=== PATIENT | male | born 1935 | race Caucasian/White ===

== ENCOUNTER 2024-10-10 07:38 | Inpatient (IN) | payer OTHER, SELFPAY ==
[2024-10-10] VITALS (23 sets, daily range): BP systolic 105–139; BP diastolic 45–78; PULSE 62–79; RESP 16–24; TEMP 36.4–37.2; O2SAT 78–99; BMI 27.0
--- NOTE | 2024-10-10 08:05 | EKG12_ITS ---
Test Reason : SOB Blood Pressure : */* mmHG Vent. Rate : 66 BPM Atrial Rate : 66 BPM P-R Int : 166 ms QRS Dur : 90 ms QT Int : 420 ms P-R-T Axes : -4 39 19 degrees QTcB Int : 440 ms Normal sinus rhythm baseline artifact probably normal Confirmed by Sharan Stokes ([id number]), editorial writer EMMIE ZARCO ([id number]) on 10/11/2024 1:03:34 PM Referred By: Confirmed By: Sharan Stokes
--- NOTE | 2024-10-10 08:06 | EDS_ITS ---
HPI History of Present Illness Chief Complaint: Cold Sx Informant: patient and family Narrative Narrative: Sent from urgent care here with son-in-law increasing productive sputum for the last 4 to 5 days. Denies dyspnea, occasional wheezing. Denies asthma or COPD history. Denies chest or abdominal pain. Denies fevers chills or myalgias. Oxygen was low at urgent care therefore he sent here. He does not wear home oxygen. On arrival pulse ox 83% on room air. Denies cardiac history. Hypertension and diabetes history. Denies sick contacts. Per son-in-law during nobody was sick around him. Prior similar symptoms: No PFSH PFSH Allergy/AdvReac Type Severity Reaction Status Date / Time No Known Allergies Allergy Verified 10/10/24 07:43 Social History Smoking Status: Smoker, status unknown tobacco type: smokeless tobacco ROS ROS ED Constitutional Constitutional ED: Denies chills, fever(s) or sweats Eyes Eyes: Denies change in vision ENT ENT ED: Denies dysphagia or sore throat Cardiovascular Cardiovascular: Denies chest pain, leg edema, palpitations or racing heartbeat Respiratory/Chest Respiratory/Chest: Reports cough and other Details: Wheeze ; Denies dyspnea or dyspnea on exertion Gastrointestinal Gastrointestinal: Denies abdominal pain, diarrhea, nausea or vomiting Genitourinary Genitourinary ED: Denies dysuria, hematuria or urinary frequency Musculoskeletal Musculoskeletal: Denies back pain, extremity pain or neck pain Integumentary Denies rash or wounds Neurologic Neurologic: Denies headache(s), paresthesias or weakness EXAM Physical Exam Const Vital Signs: 10/10/24 07:41 10/10/24 07:43 10/10/24 07:52 Temperature 97.5 F L 98.9 F Temperature Source Temporal Oral Pulse Rate 64 62 Respiratory Rate 24 H 20 H Respiratory Effort Respiratory Depth Respiratory Pattern Blood Pressure 123/49 H 135/62 H Blood Pressure Mean 73 86 Pulse Ox 83 92 86 Oxygen Delivery Method Room Air Nasal Cannula Nasal Cannula Oxygen Flow Rate (L/min) 2 2 10/10/24 07:52 10/10/24 07:52 10/10/24 08:18 Temperature Temperature Source Pulse Rate 63 Respiratory Rate 16 Respiratory Effort Short of Breath Respiratory Depth Shallow Respiratory Pattern Normal Normal Blood Pressure Blood Pressure Mean Pulse Ox Oxygen Delivery Method Nasal Cannula Oxygen Flow Rate (L/min) 2 10/10/24 08:18 10/10/24 08:26 10/10/24 08:43 Temperature 98.7 F Temperature Source Oral Pulse Rate 79 Respiratory Rate 18 Respiratory Effort Respiratory Depth Respiratory Pattern Blood Pressure 135/75 H Blood Pressure Mean 95 Pulse Ox 99 92 97 Oxygen Delivery Method Nasal Cannula Nasal Cannula Nasal Cannula Oxygen Flow Rate (L/min) 2 2 2 Positive well nourished and well developed Constitutional Narrative: 2 L nasal cannula 92% pulse ox on the monitor. General Appearance ED: well developed and NAD HEENT Reports moist mucous membranes normocephalic and atraumatic Eyes EOMs intact bilaterally and conjunctivae normal General Eye ED: Yes normal appearance of both eyes Neck no lymphadenopathy and supple General: Negative for tenderness Chest Wall Chest: Negative for tenderness Resp Resp Narrative: Diminished breath sounds at bases with bilateral expiratory wheeze. Effort and Inspection: Negative for respiratory distress Cardio regular rate, regular rhythm and no murmurs Peripheral Pulses: pulses 2+ throughout GI normal to inspection, nondistended, normoactive bowel sounds and non-tender Palpation: Negative for guarding or rebound tenderness present Back/Spine no CVA tenderness and no thoracic nor lumbar tenderness Extremity normal to inspection Extremity Narrative: Very minimal swelling lower extremities. General Extremety ED: Yes edema; Negative for tenderness General Extremity: edema Neuro oriented x3 and no sensory deficits noted Sensorium / Orientation: awake and alert Skin no rashes or lesions noted and no wounds MDM MDM MDM Narrative Medical decision making narrative: Interventions / MDM: Differential diagnosis: Hypoxia, commune acquired pneumonia, anemia, kidney injury Diagnosis considered but do not suspect: Lung mass however CT negative. My EKG interpretation: Sinus rate of 66, no ST or T wave changes, wandering baseline noted. Imaging independently reviewed and interpreted by myself: 2 view chest x-ray: Findings concerning of right upper, right middle and right lower lobe infiltrative findings. CT chest IV contrast: No mass. Infiltrative changes noted. Also read by radiology. External documents reviewed: N/A Test considered but not ordered:N/A ED course: Patient external wheeze productive sputum last 4 to 5 days with hypoxia. Stable on oxygen. Aerosol treatments ordered. Labs ordered, chest x- ray and viral swabs ordered for further evaluation. 0845: White count 7.5. Chest x-ray 2 views concerning for right upper middle and lower lobe infiltrative findings. Patient 1 out of 4 SIRS criteria for initial respiratory rate 24. No sepsis criteria. Blood pressure stable. Hemoglobin 8.1. Hemoccult obtained and sent. He states history of anemia in the past. He cannot tell me what his baseline number was. Currently on 3 L nasal cannula 95%. 0900: Per radiology read x-ray right lower lobe density with possible mass recommended CT scan for further evaluation. He has no tobacco history. Creatinine 2.08 with GFR of 32. He denies any history of CKD. He does admit to decreased p.o. intake. He will be given normal saline fluid for hydration. Wi ll obtain contrast CT chest for evaluation to rule out mass. Will discuss with hospitalist service for admission. 0950: CT chest no mass infiltrative changes noted. Hemoccult negative. I discussed this with hospitalist Dr. Pinto for admission to medical floor. Blood pressure stable. Stable on 3 L of oxygen. Re-evaluation: stable Disposition discussed with patient/family/significant other: Patient and family Case discussed with consulting clinician: Hospitalist This note was generated with [employer] dictation software. It may contain incorrect words, spelling, and punctuation that were not noted in checking the note before signing. Lab Data Attestation: I reviewed the patient's lab results. Labs: Laboratory Results - last 24 hr 10/10/24 07:58 WBC 7.5 RBC 2.33 L Hgb 8.1 L Hct 25.5 L MCV 109.4 H MCH 34.8 H MCHC 31.8 L RDW Std Deviation 68.7 H RDW Coeff of Zackery 17.3 H Plt Count 195 MPV 12.0 Immature Gran % (Auto) 0.700 Neut % (Auto) 73.7 H Lymph % (Auto) 11.1 L [place] % (Auto) 13.8 H Eos % (Auto) 0.4 Baso % (Auto) 0.3 Absolute Neuts (auto) 5.5 Absolute Lymphs (auto) 0.83 Nucleated RBC % 0 Anisocytosis 1+ Sodium 137 Potassium 3.6 Chloride 102 Carbon Dioxide 27.0 Anion Gap 8 BUN 43 H Creatinine 2.08 H Estim Creat Clear Calc 24.86 Est GFR (MDRD) Af Amer 39 L Est GFR (MDRD) Non-Af 32 L BUN/Creatinine Ratio 20.7 H Glucose 142 H Calcium 8.9 Total Bilirubin 1.30 H AST 24 ALT 32 Alkaline Phosphatase 77 Total Protein 7.0 Albumin 3.4 Globulin 3.6 Albumin/Globulin Ratio 0.9 Radiography Diagnostic Testing: Clinical Impression(s) from Imaging Studies Chest X-Ray 10/10/24 08:30 IMPRESSION: Right upper lobe infiltration with infiltration/soft tissue density in the right lower lobe. Correlation with CT scan recommended. Electronically Signed: Desean Martin MD at 8:53 EST , Chest CT 10/10/24 09:20 IMPRESSION: Right upper and right middle lobe consolidation with a small right pleural effusion. Radiographic follow-up recommended. Gallstones. Electronically Signed: Desean Martin MD at 9:48 EST , Discharge Plan Dx/Rx/DC Orders Clinical Impression: Community acquired pneumonia, Hypoxia, Anemia, Acute kidney injury Disposition Disposition: Acute Care [facility]
[2024-10-10] MEDS: Ipratropium/Albuterol Sulfate 3 ML AMPUL.NEB INHALATION (08:18)
--- NOTE | 2024-10-10 08:30 | RAD_ITS ---
STUDY: X-RAY CHEST REASON FOR EXAM: Male, 88 years old. Cough TECHNIQUE: PA and lateral views of the chest. COMPARISON: None. FINDINGS: EKG electrodes are seen. Infiltrate in the right upper lobe. Rounded soft tissue density/infiltrate in the right middle lobe. Correlation with CT scan is recommended for further follow-up to rule out possible mass lesion. There is blunting of the right costophrenic angle. Normal size heart. Normal mediastinum and nyasia. Normal visualized pulmonary arteries. There is atherosclerotic calcification of the aortic arch with tortuosity. There are diffuse degenerative changes of the visualized thoracic spine. There is degenerative osteoarthritis of the bilateral shoulders. There is no demonstrated abnormality of the visualized soft tissue structures of the upper abdomen. RAD/Chest PA and Lateral IMPRESSION: Right upper lobe infiltration with infiltration/soft tissue density in the right lower lobe. Correlation with CT scan recommended. Electronically Signed: Desean Martin MD at 8:53 EST ,
[2024-10-10 08:34] LABS: Absolute Lymphocyte Count 0.83 X10^3/uL (0.83-4.51); Absolute Neutrophil Count 5.5 X10^3/uL (2.0-7.7); Basophil# 0.02 X10^3/uL; Basophil% 0.3 % (0-1); Eosinophil# 0.03 X10^3/uL; Eosinophils% 0.4 % (0-5); Hematocrit 25.5 % (40-54); Hemoglobin 8.1 g/dL (13.0-16.5); Lymphocyte # 0.83 X10^3/ul (0.83-4.51); Lymphocyte % 11.1 % (19-41); Mean Corp Hgb Conc 31.8 g/dL (32-36); Mean Corpuscular Hgb 34.8 pg (27.0-32.0); Mean Corpuscular Volume 109.4 fL (80-94); Monocyte# 1.03 X10^3/uL; Monocyte% 13.8 % (0-10); NRBC Flagged by Analyzer 0 % (0-5); Neutrophil # 5.51 X10^3/uL (2.7-7.7); Neutrophil % 73.7 % (47-70); POSITIVE MORPHOLOGY YES; Platelet Count 195 K/mm3 (150-450); RBC Distribution Width CV 17.3 % (11.6-14.6); RBC Distribution Width SD 68.7 fl (35.1-43.9); Red Blood Count 2.33 M/mm3 (4.6-6.2); White Blood Count 7.5 K/mm3 (4.4-11.0)
[2024-10-10 08:42] LABS: Differential Indicated SCAN CRITERIA MET
[2024-10-10 08:53] LABS: ALB/GLOB Ratio 0.9 RATIO (0.9-2.4); AST(SGOT) 24 U/L (15-37); Alanine Aminotransfer ALT/SGPT 32 U/L (16-61); Albumin, Serum 3.4 g/dL (3.2-5.0); Alkaline Phosphatase 77 U/L (45-117); Anion Gap 8 (5-15); BUN 43 mg/dL (7-18); BUN/Creat Ratio 20.7 RATIO (10-20); Calcium,Total 8.9 mg/dL (8.5-10.1); Chloride 102 mmol/L (98-107); Creatinine, Serum 2.08 mg/dL (0.70-1.30); EST Glomerular Filtration Rate 32 mL/min (>60); Est Glom Filt Rate - Afr Amer 39 mL/min (>60); Estimated Creatinine Clearance 24.86 ml/min; Globulin 3.6 g/dL (2.2-4.2); Glucose 142 mg/dL (74-106); Potassium 3.6 mmol/L (3.5-5.1); Sodium Level 137 mmol/L (136-145)
--- NOTE | 2024-10-10 09:20 | CT_ITS ---
STUDY: CT CHEST WITH CONTRAST REASON FOR EXAM: Male, 88 years old. pna, ? mass -- gfr 32 RADIATION DOSAGE (If Supplied By Facility): CTDIvol = ( 14.53 ) mGy, DLP = ( 522.40 ) mGycm TECHNIQUE: Transaxial imaging was performed following intravenous administration of IV 75mL Isovue-300. Multiplanar coronal and sagittal images were reformatted. Individualized dose optimization techniques were used for this CT. COMPARISON: Comparison is made with prior chest radiograph done earlier today. FINDINGS: CHEST There is evidence of right upper and right middle lobe consolidation. Patchy infiltrate in the right lower lobe with a small right pleural effusion. Radiographic follow-up recommended. There is no demonstrated pleural abnormality. Normal heart and pericardium. Normal mediastinum. Normal hilar regions. Normal unenhanced pulmonary arteries. There is atherosclerotic calcification of the aortic arch. There are multi-level degenerative changes of the thoracic spine. Calcified splenic and hepatic granulomas. Multiple gallstones. CT/Chest WITH Contrast IMPRESSION: Right upper and right middle lobe consolidation with a small right pleural effusion. Radiographic follow-up recommended. Gallstones. Electronically Signed: Desean Martin MD at 9:48 EST ,
[2024-10-10] MEDS: 0.9% Normal Saline (500mL Bag) 500 ML 999 ML IV (09:32)
[2024-10-10] MEDS: Ceftriaxone 1 GM/50 ML BAG IV (09:33)
[2024-10-10 09:40] LABS: Anisocytosis 1+
[2024-10-10] MEDS: Azithromycin 500 MG in Dextrose 5%-Water (250mL Bag) 250 ML 250 MG IV (09:54)
[2024-10-10 10:12] LABS: BNP,B-Type NATRIURETIC PEPTIDE 372.5 pg/mL (0-100)
--- NOTE | 2024-10-10 10:27 | CASEMGMT ---
Care Management Face to Face with patient for initial transition planning/care coordination assessment.? This medical writer introduced self and role at [facility]. Patient lying in bed, alert and oriented. Patient willing to participate in assessment and is able to answer all questions appropriately, patients son in law in room and permission given for him to participate in assessment.? Care providers, pharmacy, and demographics verified. Admitting Diagnosis: pneumonia Other diagnosis history: hypoxia, anemia, kidney injury PCP: ?[facility] provider, [facility] Specialists: ?None Preferred Pharmacy: [facility] Insurance: ?Medicare and VA Prescription Benefit:? yes Living Will/HPOA: Patient states he has both, son in law to bring in copies when able LNOK: Morenita Todd, daughter Living Arrangements:? Splits time between daughters, one lives in [place], [place], one lives in [place], [place].? Currently living in [place] in a two story home.? 5-6 steps to enter, 12-15 to get upstairs.? Patient able to climb stairs as needed.?? Daughter cooks and does laundry, patient able to dress, bathe and toilet self.? Transportation: Patient does not drive, daughter or KELLY transport as needed. DME: cane, walker, wheelchair, grab bars in shower, shower chair and blood pressure cuff. Patient was not using oxygen at home. HHC:? used previously when living in [place], not since moving to [place] SNF/Rehab: None Community Resources: None Behavioral Health History:? None Patient goals: Patient wishes to discharge home.? Patient states he has no further needs or concerns at this time. Disposition Plan: CM to follow for discharge planning needs that may arise. Shalini Tijerina, BLUE SPLIT TRIMMER, ELEVATOR TENDER
[2024-10-10] MEDS: 0.9% Normal Saline (500mL Bag) 500 ML 15 ML IV (11:38)
[2024-10-10] MEDS: 0.9% Saline Lock 10 ML Syringe IV (11:38)
[2024-10-10] MEDS: Heparin Injection (Vial) 5,000 UNIT/ML VIAL 5000 UNIT SC ×2 (11:38→22:43)
[2024-10-10] MEDS: guaiFENesin Dm 10 ML UDC PO ×3 (11:38→23:14)
[2024-10-10] MEDS: Pantoprazole Sodium 40 MG in 0.9% Normal Saline (100mL MB+) 100 ML 330 MG IV ×2 (12:02→22:44)
[2024-10-10] MEDS: Albuterol 2.5 MG/3 ML VIAL.NEB. INHALATION ×2 (13:19→20:22)
[2024-10-10 14:15] LABS: Hematocrit 22.3 % (40-54); Hemoglobin 7.1 g/dL (13.0-16.5)
--- NOTE | 2024-10-10 17:38 | PCM.HP.STD ---
HPI - General General Date of Admission: 10/10/24 Date of Service: 10/10/24 Chief Complaint: Low pulse oximetry HPI Narrative PEPE RIOS, is a 88 M who presents to the emergency room [facility] after going to urgent care with complaints of cough productive of green sputum over the past several days. Patient's pulse ox on room air at the urgent care was noted to be 83% and so he was referred to [facility] ER for evaluation. Labs obtained in the emergency room showed normal white blood cell count at 7.5, pulse ox on room air was 83%, chest x-ray was obtained and showed right upper middle and lower lobe infiltrates, hemoglobin was low at 8.1, patient's oxygen saturation on 3 L nasal cannula was 95%. CT scan of the chest revealed right upper and right middle lobe consolidation and small right pleural effusion. Gallstones were also noted to be present. Patient was given IV Zithromax and Rocephin, he will be admitted to [place] [id number] for community-acquired pneumonia with hypoxia. [facility] Home Medications ?Medication ?Instructions ?Recorded ?Last Taken ?Type amlodipine 10 mg tablet 10 mg PO DAILY bp 10/10/24 Unknown History aspirin 81 mg chewable tablet 1 tab PO QHS blood thinner 10/10/24 Unknown History (Aspirin Childrens) atenolol 100 mg tablet 100 mg PO DAILY heart 10/10/24 Unknown History gabapentin 300 mg capsule 300 mg PO QHS pain 10/10/24 Unknown History glipizide 5 mg tablet 5 mg PO BID diabetes 10/10/24 Unknown History hydrochlorothiazide 25 mg tablet 25 mg PO DAILY bp 10/10/24 Unknown History losartan 100 mg tablet (Cozaar) 100 mg PO DAILY bp 10/10/24 Unknown History lovastatin 40 mg tablet,extended 40 mg PO QHS see 10/10/24 Unknown History release 24 hr (Altoprev) magnesium 250 mg tablet 500 mg PO QHS supplement 10/10/24 Unknown History omeprazole 20 mg capsule,delayed 20 mg PO DAILY gerd 10/10/24 Unknown History release paroxetine HCl 20 mg tablet 20 mg PO QHS mood 10/10/24 Unknown History pioglitazone 30 mg tablet (Actos) 30 mg PO DAILY see 10/10/24 Unknown History Allergy/AdvReac Type Severity Reaction Status Date / Time No Known Allergies Allergy Verified 10/10/24 07:43 Social History Smoking Status: Smoker, status unknown tobacco type: smokeless tobacco ROS Constitutional Constitutional: Reports fatigue; Denies anorexia, change in weight, chills, fever(s), night sweats or weakness Eyes Eyes: Denies blurry vision, change in vision, discharge from eye(s) or eye pain Cardiovascular Cardiovascular: Denies chest pain, claudication, edema or palpitations Respiratory/Chest Respiratory/Chest: Reports shortness of breath with exertion; Denies cough, hemoptysis or shortness of breath at rest Gastrointestinal Gastrointestinal: Denies abdominal pain, constipation, diarrhea, hematemesis, hematochezia, melena, nausea or vomiting Genitourinary Genitourinary: Denies difficulty urinating, dysuria, hematuria, urinary frequency, urinary hesitancy, urinary incontinence or urinary urgency Musculoskeletal Musculoskeletal: Denies back pain, joint pain, joint stiffness, joint swelling, myalgias or neck pain Neurologic Neurologic: Denies abnormal gait, abnormal speech, dizziness, focal weakness, headache(s), loss of vision, numbness, other visual disturbances, paresthesias, syncope or tingling Psychiatric Psychiatric: Denies anxiety, cognitive impairment, depression, irritability, mood swings or suicidal ideation Endocrine Endocrinology: Denies change in body appearance, cold intolerance, excessive sweating, heat intolerance, polydipsia or polyuria Hematologic/Lymphatic Hematologic/Lymphatic: Denies none, anemia, easy bleeding, easy bruising or lymphadenopathy Allergic/Immunologic Allergic/Immunologic: Denies rhinitis, urticaria, eczemia or asthma Vital Signs Vital Signs Vital Signs: 10/10/24 07:41 10/10/24 07:43 10/10/24 07:52 Temperature 97.5 F L 98.9 F Temperature Source Temporal Oral Pulse Rate 64 62 Respiratory Rate 24 H 20 H Respiratory Effort Respiratory Depth Respiratory Pattern Blood Pressure 123/49 H 135/62 H Blood Pressure Mean 73 86 Blood Pressure Source Blood Pressure Position Blood Pressure Location Pulse Ox 83 92 86 Oxygen Delivery Method Room Air Nasal Cannula Nasal Cannula Oxygen Flow Rate (L/min) 2 2 10/10/24 07:52 10/10/24 07:52 10/10/24 08:18 Temperature Temperature Source Pulse Rate 63 Respiratory Rate 16 Respiratory Effort Short of Breath Respiratory Depth Shallow Respiratory Pattern Normal Normal Blood Pressure Blood Pressure Mean Blood Pressure Source Blood Pressure Position Blood Pressure Location Pulse Ox Oxygen Delivery Method Nasal Cannula Oxygen Flow Rate (L/min) 2 10/10/24 08:18 10/10/24 08:26 10/10/24 08:43 Temperature 98.7 F Temperature Source Oral Pulse Rate 79 Respiratory Rate 18 Respiratory Effort Respiratory Depth Respiratory Pattern Blood Pressure 135/75 H Blood Pressure Mean 95 Blood Pressure Source Blood Pressure Position Blood Pressure Location Pulse Ox 99 92 97 Oxygen Delivery Method Nasal Cannula Nasal Cannula Nasal Cannula Oxygen Flow Rate (L/min) 2 2 2 10/10/24 09:55 10/10/24 10:00 10/10/24 10:54 Temperature 98.7 F 98.4 F 98.0 F Temperature Source Oral Oral Pulse Rate 66 78 73 Respiratory Rate 18 18 20 H Respiratory Effort Respiratory Depth Respiratory Pattern Blood Pressure 139/68 H 126/78 H 129/51 H Blood Pressure Mean 91 94 77 Blood Pressure Source Blood Pressure Position Blood Pressure Location Pulse Ox 94 96 93 Oxygen Delivery Method Room Air Nasal Cannula Oxygen Flow Rate (L/min) 2 10/10/24 13:10 10/10/24 13:46 10/10/24 14:35 Temperature Temperature Source Pulse Rate 78 Respiratory Rate 18 Respiratory Effort Respiratory Depth Respiratory Pattern Normal Blood Pressure Blood Pressure Mean Blood Pressure Source Blood Pressure Position Blood Pressure Location Pulse Ox 78 Oxygen Delivery Method Nasal Cannula Room Air Oxygen Flow Rate (L/min) 2 10/10/24 14:42 10/10/24 14:42 10/10/24 14:44 Temperature 98.3 F Temperature Source Oral Pulse Rate 73 Respiratory Rate 18 Respiratory Effort Normal Respiratory Depth Respiratory Pattern Blood Pressure 105/45 L Blood Pressure Mean 65 Blood Pressure Source Monitor Blood Pressure Position Semi-Fowlers Blood Pressure Location Right Arm Pulse Ox 92 91 Oxygen Delivery Method Nasal Cannula Nasal Cannula Oxygen Flow Rate (L/min) 3 2 10/10/24 15:10 10/10/24 15:25 10/10/24 15:48 Temperature Temperature Source Pulse Rate Respiratory Rate Respiratory Effort Respiratory Depth Respiratory Pattern Blood Pressure Blood Pressure Mean Blood Pressure Source Blood Pressure Position Blood Pressure Location Pulse Ox 85 91 92 Oxygen Delivery Method Nasal Cannula Nasal Cannula Oxygen Flow Rate (L/min) 3 3 3 10/10/24 15:51 10/10/24 16:10 Temperature Temperature Source Pulse Rate 62 Respiratory Rate Respiratory Effort Respiratory Depth Respiratory Pattern Blood Pressure Blood Pressure Mean Blood Pressure Source Blood Pressure Position Sitting Blood Pressure Location Pulse Ox 86 95 Oxygen Delivery Method Nasal Cannula Oxygen Flow Rate (L/min) 3 3 Weight Weight: 85.502 kg Body Mass Index (BMI) 27.0 Physical Exam Const alert, oriented x3, no apparent distress and healthy appearing General Appearance: cooperative, well kempt and well developed Orientation / Consciousness: awake, oriented to person, oriented to place and oriented to time HEENT normocephalic, head/scalp atraumatic and moist oral mucous membranes Eyes PERRL, EOMs intact bilaterally and conjunctivae normal Neck supple, no JVD, thyroid normal and no carotid bruits General: trachea midline Resp normal respiratory effort, no retractions and no use of accessory muscles Resp Narrative: Inspiratory rales are noted over the right lung field Auscultation: Negative for rales, rhonchi or wheezes Cardio regular rate, regular rhythm, S1 normal heart sound, S2 normal heart sound, no murmurs, no rub and no gallops Cardio Narrative: Occasional extrasystolic beats were noted GI normal to inspection, nondistended, normoactive bowel sounds, soft to palpation, non-tender and non-distended Extremity no clubbing, cyanosis or edema Skin no rashes or lesions noted General Skin Exam: no breakdown Neuro oriented x3, CN's II-XII intact bilaterally, moves all extremities, no focal motor deficits and no sensory deficits noted Sensorium / Orientation: awake and alert Speech: speech normal Psych affect normal Results Lab / Micro Data 10/11/24 05:06 10/11/24 05:06 Labs: Laboratory Results - last 24 hr 10/10/24 07:58: WBC 7.5, RBC 2.33 L, Hgb 8.1 L, Hct 25.5 L, MCV 109.4 H, MCH 34.8 H, MCHC 31.8 L, RDW Std Deviation 68.7 H, RDW Coeff of Zackery 17.3 H, Plt Count 195, MPV 12.0, Immature Gran % (Auto) 0.700, Neut % (Auto) 73.7 H, Lymph % (Auto) 11.1 L, [place] % (Auto) 13.8 H, Eos % (Auto) 0.4, Baso % (Auto) 0.3, Absolute Neuts (auto) 5.5, Absolute Lymphs (auto) 0.83, Nucleated RBC % 0, Anisocytosis 1+, Sodium 137, Potassium 3.6, Chloride 102, Carbon Dioxide 27.0, Anion Gap 8, BUN 43 H, Creatinine 2.08 H, Estim Creat Clear Calc 24.86, Est GFR (MDRD) Af Amer 39 L, Est GFR (MDRD) Non-Af 32 L, BUN/Creatinine Ratio 20.7 H, Glucose 142 H, Calcium 8.9, Total Bilirubin 1.30 H, AST 24, ALT 32, Alkaline Phosphatase 77, B-Natriuretic Peptide 372.5 H, Total Protein 7.0, Albumin 3.4, Globulin 3.6, Albumin/Globulin Ratio 0.9 10/10/24 14:08: Hgb 7.1 L, Hct 22.3 L Micro: Microbiology 10/10/24 15:00 Stool Stool Occult Blood (DOV) - Final 10/10/24 15:00 Urine, Clean Catch Legionella Antigen - Final 10/10/24 15:00 Urine, Clean Catch Streptococcus pneumoniae Antigen (M - Final 10/10/24 08:05 Mucosa - Nose SARS-CoV-2, Influenza & RSV (PCR) - Final 10/10/24 08:59 Stool Stool Occult Blood (DOV) - Final Imaging Radiology Impression Chest X-Ray 10/10/24 08:30 IMPRESSION: Right upper lobe infiltration with infiltration/soft tissue density in the right lower lobe. Correlation with CT scan recommended. Electronically Signed: Desean Martin MD at 8:53 EST , Chest CT 10/10/24 09:20 IMPRESSION: Right upper and right middle lobe consolidation with a small right pleural effusion. Radiographic follow-up recommended. Gallstones. Electronically Signed: Desean Martin MD at 9:48 EST , Assessment & Plan Assessment/Plan (1) Community acquired pneumonia: PLAN: Plan 1. Right sided community-acquired pneumonia-patient will be admitted to MedSurg, Zithromax and Rocephin will be administered, aerosol treatments will be administered, labs will be monitored as needed #2 hypoxia secondary #1-pulse ox will be monitored, oxygen will be adjusted as needed #3 anemia-etiology unclear, labs will be trended, patient may need workup for anemia #4 elevated creatinine-unfortunately we do not have a baseline creatinine on the patient, monitor labs Total clinical time spent by myself addressing patient's medical issues, reviewing all of his data, and collaborating with patient's care team: 55 minutes Charges/Coding Visit Charges Inpatient E&M: 18607 Init Hosp L2
[2024-10-10 18:11] LABS: Hematocrit 22.3 % (40-54); Hemoglobin 7.1 g/dL (13.0-16.5)
[2024-10-10] MEDS: Gabapentin 300 MG Capsule PO (22:43)
[2024-10-10] MEDS: Atorvastatin Calcium 20 MG Tablet PO (22:44)
[2024-10-11] VITALS (15 sets, daily range): BP systolic 111–136; BP diastolic 50–66; PULSE 58–88; RESP 14–28; TEMP 36.6–37.4; O2SAT 84–98
[2024-10-11 06:06] LABS: Absolute Lymphocyte Count 0.78 X10^3/uL (0.83-4.51); Absolute Neutrophil Count 2.7 X10^3/uL (2.0-7.7); Basophil# 0.02 X10^3/uL; Basophil% 0.5 % (0-1); Eosinophil# 0.03 X10^3/uL; Eosinophils% 0.7 % (0-5); Hematocrit 21.6 % (40-54); Hemoglobin 6.8 g/dL (13.0-16.5); Lymphocyte # 0.78 X10^3/ul (0.83-4.51); Lymphocyte % 17.7 % (19-41); Mean Corp Hgb Conc 31.5 g/dL (32-36); Mean Corpuscular Hgb 34.9 pg (27.0-32.0); Mean Corpuscular Volume 110.8 fL (80-94); Mean Platelet Vol. 11.8 fl (6.2-12.0); Monocyte# 0.81 X10^3/uL; Monocyte% 18.4 % (0-10); NRBC Flagged by Analyzer 0.5 % (0-5); Neutrophil # 2.73 X10^3/uL (2.7-7.7); Neutrophil % 61.8 % (47-70); POSITIVE MORPHOLOGY YES; Platelet Count 166 K/mm3 (150-450); RBC Distribution Width CV 17.3 % (11.6-14.6); Red Blood Count 1.95 M/mm3 (4.6-6.2); White Blood Count 4.4 K/mm3 (4.4-11.0)
[2024-10-11 06:15] LABS: Differential Indicated SCAN CRITERIA MET
[2024-10-11] MEDS: glipiZIDE 5 MG Tablet PO ×2 (06:29→16:14)
[2024-10-11 06:45] LABS: Anion Gap 7 (5-15); BUN 39 mg/dL (7-18); BUN/Creat Ratio 20.5 RATIO (10-20); Calcium,Total 8.5 mg/dL (8.5-10.1); Chloride 104 mmol/L (98-107); EST Glomerular Filtration Rate 36 mL/min (>60); Est Glom Filt Rate - Afr Amer 43 mL/min (>60); Estimated Creatinine Clearance 27.21 ml/min; Glucose 157 mg/dL (74-106); Potassium 3.8 mmol/L (3.5-5.1); Sodium Level 138 mmol/L (136-145)
[2024-10-11] MEDS: Albuterol 2.5 MG/3 ML VIAL.NEB. INHALATION ×3 (07:05→19:22)
[2024-10-11 07:53] LABS: Anisocytosis 1+; Ovalocyte RARE
[2024-10-11] MEDS: hydroCHLOROthiazide 25 MG Tablet PO (08:58)
[2024-10-11] MEDS: amLODIPine 10 MG Tablet PO (08:58)
[2024-10-11] MEDS: guaiFENesin Dm 10 ML UDC PO ×3 (08:58→22:22)
[2024-10-11] MEDS: Paroxetine 20 MG Tablet PO (08:59)
[2024-10-11] MEDS: Pantoprazole Sodium 40 MG Tablet PO (08:59)
[2024-10-11] MEDS: Atenolol 100 MG Tablet PO (09:00)
[2024-10-11] MEDS: Losartan Potassium 100 MG Tablet PO (09:00)
[2024-10-11] MEDS: 0.9% Saline Lock 10 ML Syringe IV (09:03)
[2024-10-11] MEDS: Ceftriaxone 1 GM/50 ML BAG IV (09:03)
[2024-10-11] MEDS: Azithromycin 500 MG in Dextrose 5%-Water (250mL Bag) 250 ML 250 MG IV (10:00)
[2024-10-11 12:09] LABS: Ferritin 657 ng/mL (26-388); Iron 30 ug/dL (65-175); Iron Binding Capacity,Total 225 ug/dL (250-450); PERCENT IRON SATURATION 13.3 % (15.0-55.0)
--- NOTE | 2024-10-11 14:16 | NURSING ---
rate bumped to 140 d/t bag volume states 500cc
--- NOTE | 2024-10-11 15:52 | CASEMGMT ---
Addendum entered by Meenu Multani 10/11/24 16:06: Received confirmation that [facility] does not have service in both pt locations for pt. Addendum entered by Meenu Multani 10/11/24 15:59: TC to [facility], spoke with Adri, she states they do have a location that is 14 miles from the [facility] in [place]. Email to [facility] liaison to confirm if they do as well. Original Note: FELISA COLIN into pt room, pt sitting up in chair on oxygen in no distress. Pt granddtr visiting. Pt agreeable to discussion with granddtr present. Discussed with pt where he will be dc'ing to, pt states [place] until after Jasmin. Pt does not have a pox but is able to afford one. He is aware that this may be beneficial to him. Discussed HHC with pt. Pt states physically he thinks he is getting around ok and currently does not need therapy. Discussed having SN in the home for respiratory monitoring, education. Pt is agreeable to this. Pt is aware that this FELISA COLIN will look up [employer] companies who service pt in both living situations and present those options to him. FELISA COLIN provided pt a list of HHC providers including quality and resource use data and consistent with the patient?s preferred geographic region, medical needs, and insurance network were provided from the [employer] Guide. Pt to review list and is aware that FELISA COLIN will check back in the morning for his top 3 preferences.
--- NOTE | 2024-10-11 16:27 | NURSING ---
blood done, switched over to flush tubing
--- NOTE | 2024-10-11 17:14 | PCM.PN.HOSP ---
Reason for Visit Reason for Visit: Diagnoses Pneumonia, unspecified organism (10/10/24) Subjective Subjective Patient was seen and examined today, he had a drop in his hemoglobin today and I had to transfuse 1 unit of packed red blood cells. Patient's stool Hemoccult was negative x 2. Patient is currently on 3 L of oxygen via nasal cannula. Objective Data Objective Data Vital Signs: Vital Signs Temp Pulse Resp BP Pulse Ox O2 Del Method O2 Flow Rate 97.9 F 60 20 H 136/66 H 93 Nasal Cannula 3 10/11/24 16:49 10/11/24 16:49 10/11/24 16:49 10/11/24 16:49 10/11/24 16:49 10/11/24 16:49 10/11/24 16:49 Oxygen Flow Rate (L/min) 3 Oxygen Delivery Method Nasal Cannula Weight: 85.502 kg Body Mass Index (BMI) 27.0 Intake & Output: Intake and Output for Last 24 Hours 10/09/24 10/10/24 10/11/24 23:59 23:59 23:59 Intake Total 1366.75 / 1366.75 1143.08 / 1143.08 Balance 1366.75 / 1366.75 1143.08 / 1143.08 Lab / Micro Data 10/11/24 05:06 10/11/24 05:06 Labs: Laboratory Results - last 24 hr 10/10/24 17:59: Hgb 7.1 L, Hct 22.3 L 10/11/24 05:06: WBC 4.4, RBC 1.95 L, Hgb 6.8 L, Hct 21.6 L, MCV 110.8 H, MCH 34.9 H, MCHC 31.5 L, RDW Std Deviation 69.0 H, RDW Coeff of Zackery 17.3 H, Plt Count 166, MPV 11.8, Immature Gran % (Auto) 0.900, Neut % (Auto) 61.8, Lymph % (Auto) 17.7 L, [place] % (Auto) 18.4 H, Eos % (Auto) 0.7, Baso % (Auto) 0.5, Absolute Neuts (auto) 2.7, Absolute Lymphs (auto) 0.78 L, Nucleated RBC % 0.5, Anisocytosis 1+, Ovalocytes RARE, Sodium 138, Potassium 3.8, Chloride 104, Carbon Dioxide 27.0, Anion Gap 7, BUN 39 H, Creatinine 1.90 H, Estim Creat Clear Calc 27.21, Est GFR (MDRD) Af Amer 43 L, Est GFR (MDRD) Non-Af 36 L, BUN/Creatinine Ratio 20.5 H, Glucose 157 H, Calcium 8.5 10/11/24 11:30: Iron 30 L, TIBC 225 L, Iron Saturation 13.3 L, Ferritin 657 H, Blood Type O POSITIVE, Antibody Screen NEGATIVE, Crossmatch See Detail Micro: Microbiology 10/11/24 09:00 Sputum, Expectorated/Coughed Gram Stain - Final 10/10/24 15:00 Stool Stool Occult Blood (DOV) - Final 10/10/24 15:00 Urine, Clean Catch Legionella Antigen - Final 10/10/24 15:00 Urine, Clean Catch Streptococcus pneumoniae Antigen (M - Final 10/10/24 08:05 Mucosa - Nose SARS-CoV-2, Influenza & RSV (PCR) - Final 10/10/24 08:59 Stool Stool Occult Blood (DOV) - Final Physical Exam Narrative alert, oriented x3, no apparent distress and healthy appearing General Appearance: cooperative, well kempt and well developed Orientation / Consciousness: awake, oriented to person, oriented to place and oriented to time HEENT normocephalic, head/scalp atraumatic and moist oral mucous membranes Eyes PERRL, EOMs intact bilaterally and conjunctivae normal Neck supple, no JVD, thyroid normal and no carotid bruits General: trachea midline Resp normal respiratory effort, no retractions and no use of accessory muscles Resp Narrative: Inspiratory rales are noted over the right lung field Auscultation: Inspiratory rales are noted over the right lung field Cardio regular rate, regular rhythm, S1 normal heart sound, S2 normal heart sound, no murmurs, no rub and no gallops Cardio Narrative: Occasional extrasystolic beats were noted GI normal to inspection, nondistended, normoactive bowel sounds, soft to palpation, non-tender and non-distended Extremity no clubbing, cyanosis or edema Skin no rashes or lesions noted General Skin Exam: no breakdown Neuro oriented x3, CN's II-XII intact bilaterally, moves all extremities, no focal motor deficits and no sensory deficits noted Sensorium / Orientation: awake and alert Speech: speech normal Psych affect normal Assessment & Plan Assessment/Plan (1) Anemia: (2) Community acquired pneumonia: PLAN: Plan 1. Right sided community-acquired pneumonia-continue on Zithromax and Rocephin for now #2 hypoxia secondary #1-pulse ox will be monitored, oxygen will be adjusted as needed #3 anemia-etiology unclear, labs will be trended, patient may need workup for anemia, 1 unit of packed red blood cells was transfused, H&H will be rechecked #4 elevated creatinine-unfortunately we do not have a baseline creatinine on the patient, monitor labs, creatinine today was 1.9 Total clinical time spent by myself addressing patient's medical issues, reviewing all of his data, and collaborating with patient's care team: 35 minutes Charges/Coding Visit Charges Inpatient E&M: 52123 Subs Hosp L2
[2024-10-11 17:56] LABS: Hemoglobin 8.7 g/dL (13.0-16.5)
[2024-10-11] MEDS: Atorvastatin Calcium 20 MG Tablet PO (22:22)
[2024-10-11] MEDS: Gabapentin 300 MG Capsule PO (22:22)
[2024-10-12] VITALS (10 sets, daily range): BP systolic 109–136; BP diastolic 58–61; PULSE 58–77; RESP 16–20; TEMP 36.2–37.2; O2SAT 85–98
[2024-10-12] MEDS: guaiFENesin Dm 10 ML UDC PO (06:27)
[2024-10-12] MEDS: glipiZIDE 5 MG Tablet PO ×2 (06:27→16:42)
[2024-10-12] MEDS: Albuterol 2.5 MG/3 ML VIAL.NEB. INHALATION ×3 (07:18→19:20)
[2024-10-12] MEDS: Pantoprazole Sodium 40 MG Tablet PO (08:58)
[2024-10-12] MEDS: hydroCHLOROthiazide 25 MG Tablet PO (08:58)
[2024-10-12] MEDS: Paroxetine 20 MG Tablet PO (08:58)
[2024-10-12] MEDS: Losartan Potassium 100 MG Tablet PO (08:58)
[2024-10-12] MEDS: Atenolol 100 MG Tablet PO (08:58)
[2024-10-12] MEDS: amLODIPine 10 MG Tablet PO (08:58)
[2024-10-12] MEDS: Ceftriaxone 1 GM/50 ML BAG IV (09:34)
[2024-10-12] MEDS: Azithromycin 500 MG in Dextrose 5%-Water (250mL Bag) 250 ML 250 MG IV (10:20)
--- NOTE | 2024-10-12 10:30 | CASEMGMT ---
Addendum entered by Meenu Multani 10/12/24 15:50: Confirmed with pt and dtr that Daria is the following primary care provider for pt at the [facility]. Notified HH of this. Addendum entered by Meenu Multani 10/12/24 14:55: [facility] notified FELISA COLIN that pt is accepted and will start Tuesday. RN DIXIE into pt room, pt dtr present. Pt is aware that [facility] has accepted pt for care. He is aware that should he be dc'd on Tuesday, HH will start on Tuesday. Pt just worked with therapy and pt is still declining home therapy. Pt is aware that this can be added later if need be. Discussed with pt that [employer] does not deliver on the weekend and the other most local option of [employer] does not have a branch in [place]. Pt and dtr decline to look at other options for oxygen and will use [employer]. Pt dtr to obtain pox for pt. Pt and dtr deny further needs at this time. Addendum entered by Meenu Multani 10/12/24 13:15: Received pt choices electronically via careport: 1. [facility] 2. [facility] 3. [facility]. TC to Mary at [facility], gave information that pt stays with both dtrs, how long he will be in [place] and that if pt does not dc today and needs oxygen, he will not dc until Tuesday as [employer] does not deliver oxygen on the weekend. FELISA COLIN to await decision to accept. Original Note: FELISA COLIN into pt room, pt lying in bed on oxygen. Asked pt if he has his 3 HH preferences, pt states he will wait until his dtr is present to make this choice. FELISA COLIN to check back today when dtr present.
--- NOTE | 2024-10-12 18:32 | PCM.PN.HOSP ---
Reason for Visit Reason for Visit: Diagnoses Anemia, unspecified (10/10/24) Pneumonia, unspecified organism (10/10/24) Subjective Subjective Patient was seen and examined today, he is still on 3 L of oxygen. Patient's sputum culture grew out normal respiratory sudheer. Patient's CBC will be repeated tomorrow Objective Data Objective Data Vital Signs: Vital Signs Temp Pulse Resp BP Pulse Ox O2 Del Method O2 Flow Rate 98 F 61 18 109/58 L 95 Nasal Cannula 3 10/12/24 14:24 10/12/24 14:24 10/12/24 14:24 10/12/24 14:24 10/12/24 15:27 10/12/24 14:25 10/12/24 15:27 Oxygen Flow Rate (L/min) 3 Oxygen Delivery Method Nasal Cannula Weight: 85.502 kg Body Mass Index (BMI) 27.0 Intake & Output: Intake and Output for Last 24 Hours 10/10/24 10/11/24 10/12/24 23:59 23:59 23:59 Intake Total 1366.75 / 1366.75 1143.08 / 1143.08 1095 / 1095 Balance 1366.75 / 1366.75 1143.08 / 1143.08 1095 / 1095 Lab / Micro Data 10/13/24 03:58 10/13/24 03:58 Micro: Microbiology 10/11/24 09:00 Sputum, Expectorated/Coughed Gram Stain - Final 10/11/24 09:00 Sputum, Expectorated/Coughed Respiratory Culture - Preliminary Appears to be normal respiratory sudheer. Further studies to follow. 10/10/24 15:00 Stool Stool Occult Blood (DOV) - Final 10/10/24 15:00 Urine, Clean Catch Legionella Antigen - Final 10/10/24 15:00 Urine, Clean Catch Streptococcus pneumoniae Antigen (M - Final 10/10/24 08:05 Mucosa - Nose SARS-CoV-2, Influenza & RSV (PCR) - Final 10/10/24 08:59 Stool Stool Occult Blood (DOV) - Final Physical Exam Narrative alert, oriented x3, no apparent distress and healthy appearing General Appearance: cooperative, well kempt and well developed Orientation / Consciousness: awake, oriented to person, oriented to place and oriented to time HEENT normocephalic, head/scalp atraumatic and moist oral mucous membranes Eyes PERRL, EOMs intact bilaterally and conjunctivae normal Neck supple, no JVD, thyroid normal and no carotid bruits General: trachea midline Resp normal respiratory effort, no retractions and no use of accessory muscles Resp Narrative: Inspiratory rales are noted over the right lung field Auscultation: Inspiratory rales are noted over the right lung field, breath sounds are distant bilaterally Cardio regular rate, regular rhythm, S1 normal heart sound, S2 normal heart sound, no murmurs, no rub and no gallops Cardio Narrative: Occasional extrasystolic beats were noted GI normal to inspection, nondistended, normoactive bowel sounds, soft to palpation, non-tender and non-distended Extremity no clubbing, cyanosis or edema Skin no rashes or lesions noted General Skin Exam: no breakdown Neuro oriented x3, CN's II-XII intact bilaterally, moves all extremities, no focal motor deficits and no sensory deficits noted Sensorium / Orientation: awake and alert Speech: speech normal Psych affect normal Assessment & Plan Assessment/Plan (1) Community acquired pneumonia: (2) Anemia: PLAN: Plan 1. Right sided community-acquired pneumonia-continue on Zithromax and Rocephin for now #2 hypoxia secondary #1-pulse ox will be monitored, oxygen will be adjusted as needed #3 anemia-etiology unclear, labs will be trended, patient may need workup for anemia, 1 unit of packed red blood cells was transfused, H&H will be rechecked #4 elevated creatinine-unfortunately we do not have a baseline creatinine on the patient, monitor labs Total clinical time spent by myself addressing patient's medical issues, reviewing all of his data, and collaborating with patient's care team: 35 minutes Charges/Coding Visit Charges Inpatient E&M: 45294 Subs Hosp L2
[2024-10-12] MEDS: Gabapentin 300 MG Capsule PO (22:52)
[2024-10-12] MEDS: Atorvastatin Calcium 20 MG Tablet PO (22:53)
[2024-10-13] VITALS (8 sets, daily range): BP systolic 116–146; BP diastolic 58–72; PULSE 62–78; RESP 14–24; TEMP 36.5–37.1; O2SAT 93–99
[2024-10-13 04:29] LABS: Absolute Lymphocyte Count 0.82 X10^3/uL (0.83-4.51); Absolute Neutrophil Count 3.2 X10^3/uL (2.0-7.7); Basophil# 0.01 X10^3/uL; Basophil% 0.2 % (0-1); Eosinophil# 0.04 X10^3/uL; Eosinophils% 0.8 % (0-5); Hematocrit 24.6 % (40-54); Hemoglobin 7.7 g/dL (13.0-16.5); Lymphocyte # 0.82 X10^3/ul (0.83-4.51); Mean Corp Hgb Conc 31.3 g/dL (32-36); Mean Corpuscular Hgb 33.6 pg (27.0-32.0); Mean Corpuscular Volume 107.4 fL (80-94); Mean Platelet Vol. 11.9 fl (6.2-12.0); Monocyte# 0.99 X10^3/uL; Monocyte% 19.3 % (0-10); NRBC Flagged by Analyzer 0 % (0-5); Neutrophil # 3.22 X10^3/uL (2.7-7.7); Neutrophil % 62.7 % (47-70); POSITIVE MORPHOLOGY YES; Platelet Count 176 K/mm3 (150-450); RBC Distribution Width CV 18.6 % (11.6-14.6); RBC Distribution Width SD 73.6 fl (35.1-43.9); Red Blood Count 2.29 M/mm3 (4.6-6.2); White Blood Count 5.1 K/mm3 (4.4-11.0)
[2024-10-13 04:45] LABS: Anion Gap 3 (5-15); BUN 32 mg/dL (7-18); BUN/Creat Ratio 19.9 RATIO (10-20); Calcium,Total 8.3 mg/dL (8.5-10.1); Chloride 103 mmol/L (98-107); Creatinine, Serum 1.61 mg/dL (0.70-1.30); EST Glomerular Filtration Rate 43 mL/min (>60); Est Glom Filt Rate - Afr Amer 52 mL/min (>60); Estimated Creatinine Clearance 32.12 ml/min; Glucose 51 mg/dL (74-106); Potassium 4.2 mmol/L (3.5-5.1); Sodium Level 137 mmol/L (136-145)
[2024-10-13 05:26] LABS: Anisocytosis RARE; Differential Indicated SCAN CRITERIA MET
--- NOTE | 2024-10-13 06:20 | RAD_ITS ---
STUDY: X-RAY CHEST REASON FOR EXAM: Male, 88 years old. Fever and cough TECHNIQUE: PA and lateral views of the chest. COMPARISON: 10/10/2024 FINDINGS: Lungs are expanded, left lung remains clear, there has been partial, but not yet complete resolution of airspace opacifications in the right middle and lower lung astorga. Continued follow-up recommended to assure complete resolution. Stable small right pleural effusion Normal size heart. Normal mediastinum and nyasia. Normal visualized pulmonary arteries. Normal visualized aortic arch and descending thoracic aorta. Normal visualized thoracic spine. Normal visualized ribs, clavicles, and shoulders. There is no demonstrated abnormality of the visualized soft tissue structures of the upper abdomen. RAD/Chest PA and Lateral IMPRESSION: Partial, but not yet complete resolution of previously noted infiltrates in the right middle and lower lung field. Continued follow-up recommended to assure complete resolution Stable small right pleural effusion Electronically Signed: Canelo Solo MD at 8:31 EST ,
[2024-10-13] MEDS: glipiZIDE 5 MG Tablet PO ×2 (07:29→19:25)
[2024-10-13] MEDS: Albuterol 2.5 MG/3 ML VIAL.NEB. INHALATION ×3 (07:46→19:55)
[2024-10-13 07:52] LABS: Bedside Glucose 89 mg/dL (74-106)
[2024-10-13 07:52] LABS: Bedside Glucose 60 mg/dL (74-106)
[2024-10-13] MEDS: amLODIPine 10 MG Tablet PO (07:59)
[2024-10-13] MEDS: hydroCHLOROthiazide 25 MG Tablet PO (07:59)
[2024-10-13] MEDS: Losartan Potassium 100 MG Tablet PO (07:59)
[2024-10-13] MEDS: Paroxetine 20 MG Tablet PO (08:00)
[2024-10-13] MEDS: Atenolol 100 MG Tablet PO (08:00)
[2024-10-13] MEDS: Pantoprazole Sodium 40 MG Tablet PO (08:00)
[2024-10-13] MEDS: Ceftriaxone 1 GM/50 ML BAG IV (11:33)
--- NOTE | 2024-10-13 12:14 | CASEMGMT ---
Hospitalist would like pt to DC tomorrow, FELISA COLIN notified pt not able to DC on Tuesday if he has O2 needs. Hospitalist asked FELISA COLIN to call daughter and inform her of this, FELISA COLIN called and spoke with Morenita to let her know pt will be here through the weekend.
[2024-10-13] MEDS: Azithromycin 500 MG in Dextrose 5%-Water (250mL Bag) 250 ML 250 MG IV (12:56)
--- NOTE | 2024-10-13 13:03 | PN.HOSP_ITS ---
Reason for Visit Reason for Visit: Diagnoses Anemia, unspecified (10/10/24) Pneumonia, unspecified organism (10/10/24) Subjective Subjective Patient was seen and examined today, I talked with his daughter who is in the room at the time my examination. I also talked with his case management and social service agency director today, I found out that the patient would not be able to have oxygen set up on the weekend due to the oxygen company he would have to use. Patient's hemoglobin dropped to 7.7 today, I will recheck it tomorrow, I discussed briefly about getting a colonoscopy and an EGD performed on the patient but the daughter states the patient is not sure he wants it done at this time I told her [facility] wanted to go that route. Objective Data Objective Data Vital Signs: Vital Signs Temp Pulse Resp BP Pulse Ox O2 Del Method O2 Flow Rate 98.0 F 66 16 124/58 H 97 Nasal Cannula 2 10/13/24 07:35 10/13/24 07:39 10/13/24 07:39 10/13/24 07:35 10/13/24 07:39 10/13/24 07:50 10/13/24 07:50 Oxygen Flow Rate (L/min) 2 Oxygen Delivery Method Nasal Cannula Weight: 85.502 kg Body Mass Index (BMI) 27.0 Intake & Output: Intake and Output for Last 24 Hours 10/11/24 10/12/24 10/13/24 23:59 23:59 23:59 Intake Total 1143.08 / 1143.08 1345 / 1345 300 / 300 Balance 1143.08 / 1143.08 1345 / 1345 300 / 300 Lab / Micro Data 10/13/24 03:58 10/13/24 03:58 Labs: Laboratory Results - last 24 hr 10/13/24 03:58: WBC 5.1, RBC 2.29 L, Hgb 7.7 L, Hct 24.6 L, MCV 107.4 H, MCH 33.6 H, MCHC 31.3 L, RDW Std Deviation 73.6 H, RDW Coeff of Zackery 18.6 H, Plt Count 176, MPV 11.9, Immature Gran % (Auto) 1.000 H, Neut % (Auto) 62.7, Lymph % (Auto) 16.0 L, [place] % (Auto) 19.3 H, Eos % (Auto) 0.8, Baso % (Auto) 0.2, Absolute Neuts (auto) 3.2, Absolute Lymphs (auto) 0.82 L, Nucleated RBC % 0, Anisocytosis RARE, Sodium 137, Potassium 4.2, Chloride 103, Carbon Dioxide 30.0, Anion Gap 3 L, BUN 32 H, Creatinine 1.61 H, Estim Creat Clear Calc 32.12, Est GFR (MDRD) Af Amer 52 L, Est GFR (MDRD) Non-Af 43 L, BUN/Creatinine Ratio 19.9, Glucose 51 L, Calcium 8.3 L 10/13/24 06:55: POC Glucose 60 L 10/13/24 07:28: POC Glucose 89 Micro: Microbiology 10/11/24 09:00 Sputum, Expectorated/Coughed Gram Stain - Final 10/11/24 09:00 Sputum, Expectorated/Coughed Respiratory Culture - Final Presumptive C albicans 10/10/24 15:00 Stool Stool Occult Blood (DOV) - Final 10/10/24 15:00 Urine, Clean Catch Legionella Antigen - Final 10/10/24 15:00 Urine, Clean Catch Streptococcus pneumoniae Antigen (M - Final 10/10/24 08:05 Mucosa - Nose SARS-CoV-2, Influenza & RSV (PCR) - Final 10/10/24 08:59 Stool Stool Occult Blood (DOV) - Final Radiography Diagnostic Testing: Radiology Impression Chest X-Ray 10/13/24 06:20 IMPRESSION: Partial, but not yet complete resolution of previously noted infiltrates in the right middle and lower lung field. Continued follow-up recommended to assure complete resolution Stable small right pleural effusion Electronically Signed: Canelo Solo MD at 8:31 EST , Physical Exam Narrative alert, oriented x3, no apparent distress and healthy appearing General Appearance: cooperative, well kempt and well developed Orientation / Consciousness: awake, oriented to person, oriented to place and oriented to time HEENT normocephalic, head/scalp atraumatic and moist oral mucous membranes Eyes PERRL, EOMs intact bilaterally and conjunctivae normal Neck supple, no JVD, thyroid normal and no carotid bruits General: trachea midline Resp normal respiratory effort, no retractions and no use of accessory muscles Resp Narrative: Inspiratory rales are noted over the right lung field Auscultation: Inspiratory rales are noted over the right lung field, breath sounds are distant bilaterally Cardio regular rate, regular rhythm, S1 normal heart sound, S2 normal heart sound, no murmurs, no rub and no gallops Cardio Narrative: Occasional extrasystolic beats were noted GI normal to inspection, nondistended, normoactive bowel sounds, soft to palpation, non-tender and non-distended Extremity no clubbing, cyanosis or edema Skin no rashes or lesions noted General Skin Exam: no breakdown Neuro oriented x3, CN's II-XII intact bilaterally, moves all extremities, no focal motor deficits and no sensory deficits noted Sensorium / Orientation: awake and alert Speech: speech normal Psych affect normal Assessment & Plan Assessment/Plan (1) Community acquired pneumonia: (2) Anemia: PLAN: Plan 1. Right sided community-acquired pneumonia-continue on Zithromax and Rocephin for now #2 hypoxia secondary #1-pulse ox will be monitored, oxygen will be adjusted as needed #3 anemia-etiology unclear, labs will be trended, patient may need workup for anemia, patient is unsure that he wants to undergo endoscopy while in the hospital, I will recheck his CBC tomorrow #4 elevated creatinine-unfortunately we do not have a baseline creatinine on the patient, monitor labs Total clinical time spent by myself addressing patient's medical issues, reviewing all of his data, and collaborating with patient's care team: 35 minutes Charges/Coding Visit Charges Inpatient E&M: 85790 Subs Hosp L2
[2024-10-13 13:33] LABS: Vitamin B12 903 pg/mL (211-911)
[2024-10-13] MEDS: Gabapentin 300 MG Capsule PO (22:57)
[2024-10-13] MEDS: Atorvastatin Calcium 20 MG Tablet PO (22:57)
[2024-10-14] VITALS (11 sets, daily range): BP systolic 110–133; BP diastolic 50–84; PULSE 57–87; RESP 14–18; TEMP 36.6–37.5; O2SAT 94–99
[2024-10-14 05:34] LABS: Absolute Lymphocyte Count 0.64 X10^3/uL (0.83-4.51); Absolute Neutrophil Count 4.5 X10^3/uL (2.0-7.7); Basophil# 0.01 X10^3/uL; Basophil% 0.2 % (0-1); Eosinophil# 0.01 X10^3/uL; Eosinophils% 0.2 % (0-5); Hematocrit 24.9 % (40-54); Hemoglobin 7.6 g/dL (13.0-16.5); Lymphocyte # 0.64 X10^3/ul (0.83-4.51); Lymphocyte % 10.4 % (19-41); Mean Corp Hgb Conc 30.5 g/dL (32-36); Mean Corpuscular Hgb 32.9 pg (27.0-32.0); Mean Corpuscular Volume 107.8 fL (80-94); Mean Platelet Vol. 11.9 fl (6.2-12.0); Monocyte# 0.97 X10^3/uL; Monocyte% 15.7 % (0-10); NRBC Flagged by Analyzer 0 % (0-5); Neutrophil % 72.7 % (47-70); POSITIVE MORPHOLOGY YES; Platelet Count 181 K/mm3 (150-450); RBC Distribution Width CV 18.2 % (11.6-14.6); RBC Distribution Width SD 71.7 fl (35.1-43.9); Red Blood Count 2.31 M/mm3 (4.6-6.2); White Blood Count 6.2 K/mm3 (4.4-11.0)
[2024-10-14 05:47] LABS: Differential Indicated SCAN CRITERIA MET
[2024-10-14 06:43] LABS: Anisocytosis RARE
[2024-10-14] MEDS: glipiZIDE 5 MG Tablet PO ×2 (06:55→16:34)
[2024-10-14] MEDS: Albuterol 2.5 MG/3 ML VIAL.NEB. INHALATION ×3 (07:25→20:15)
[2024-10-14] MEDS: Ceftriaxone 1 GM/50 ML BAG IV (09:42)
[2024-10-14] MEDS: Losartan Potassium 100 MG Tablet PO (09:44)
[2024-10-14] MEDS: amLODIPine 10 MG Tablet PO (09:45)
[2024-10-14] MEDS: Atenolol 100 MG Tablet PO (09:45)
[2024-10-14] MEDS: Paroxetine 20 MG Tablet PO (09:45)
[2024-10-14] MEDS: Pantoprazole Sodium 40 MG Tablet PO (09:45)
[2024-10-14] MEDS: hydroCHLOROthiazide 25 MG Tablet PO (09:45)
[2024-10-14] MEDS: Azithromycin 500 MG in Dextrose 5%-Water (250mL Bag) 250 ML 250 MG IV (11:06)
--- NOTE | 2024-10-14 14:02 | PCM.PN.HOSP ---
Reason for Visit Reason for Visit: Diagnoses Anemia, unspecified (10/10/24) Pneumonia, unspecified organism (10/10/24) Subjective Subjective Patient was seen and examined today, he remains on 3 L of oxygen via nasal cannula. I have elected to place him on oral antibiotics today, I have also elected to give him 1 unit of blood. I feel the patient will need oxygen set up tomorrow for discharge home, [facility] will need to set up the oxygen because the patient goes to [place] several months out of the year to stay with a family member and the oxygen will need to be set up there also. Objective Data Objective Data Vital Signs: Vital Signs Temp Pulse Resp BP Pulse Ox O2 Del Method O2 Flow Rate 97.8 F 58 L 14 133/61 H 97 Nasal Cannula 3 10/14/24 13:33 10/14/24 13:33 10/14/24 13:33 10/14/24 13:33 10/14/24 13:33 10/14/24 13:33 10/14/24 13:33 Oxygen Flow Rate (L/min) 3 Oxygen Delivery Method Nasal Cannula Weight: 85.502 kg Body Mass Index (BMI) 27.0 Intake & Output: Intake and Output for Last 24 Hours 10/12/24 10/13/24 10/14/24 23:59 23:59 23:59 Intake Total 1345 / 1345 1327 / 1327 605 / 605 Balance 1345 / 1345 1327 / 1327 605 / 605 Lab / Micro Data 10/14/24 04:36 10/13/24 03:58 Labs: Laboratory Results - last 24 hr 10/11/24 11:30: Crossmatch See Detail 10/11/24 11:30: Crossmatch See Detail 10/14/24 04:36: WBC 6.2, RBC 2.31 L, Hgb 7.6 L, Hct 24.9 L, MCV 107.8 H, MCH 32.9 H, MCHC 30.5 L, RDW Std Deviation 71.7 H, RDW Coeff of Zackery 18.2 H, Plt Count 181, MPV 11.9, Immature Gran % (Auto) 0.800, Neut % (Auto) 72.7 H, Lymph % (Auto) 10.4 L, [place] % (Auto) 15.7 H, Eos % (Auto) 0.2, Baso % (Auto) 0.2, Absolute Neuts (auto) 4.5, Absolute Lymphs (auto) 0.64 L, Nucleated RBC % 0, Anisocytosis RARE Micro: Microbiology 10/11/24 09:00 Sputum, Expectorated/Coughed Gram Stain - Final 10/11/24 09:00 Sputum, Expectorated/Coughed Respiratory Culture - Final Presumptive C albicans 10/10/24 15:00 Stool Stool Occult Blood (DOV) - Final 10/10/24 15:00 Urine, Clean Catch Legionella Antigen - Final 10/10/24 15:00 Urine, Clean Catch Streptococcus pneumoniae Antigen (M - Final 10/10/24 08:05 Mucosa - Nose SARS-CoV-2, Influenza & RSV (PCR) - Final 10/10/24 08:59 Stool Stool Occult Blood (DOV) - Final Physical Exam Const alert, oriented x3, no apparent distress, average body habitus and healthy appearing General Appearance: cooperative, well kempt and well developed Orientation / Consciousness: awake, oriented to person, oriented to place and oriented to time HEENT normocephalic, head/scalp atraumatic and moist oral mucous membranes Eyes PERRL, EOMs intact bilaterally and conjunctivae normal Neck supple, no JVD, thyroid normal and no carotid bruits General: trachea midline Resp normal respiratory effort, no retractions and no use of accessory muscles Resp Narrative: Breath sounds are diminished bilaterally but are clear Auscultation: Negative for rales, rhonchi or wheezes Cardio regular rate, regular rhythm, S1 normal heart sound, S2 normal heart sound, no murmurs, no rub and no gallops GI normal to inspection, nondistended, normoactive bowel sounds, soft to palpation, non-tender and non-distended Extremity no clubbing, cyanosis or edema Skin no rashes or lesions noted General Skin Exam: no breakdown Neuro oriented x3, CN's II-XII intact bilaterally, no focal motor deficits and no sensory deficits noted Sensorium / Orientation: awake and alert Speech: speech normal Psych affect normal Assessment & Plan Assessment/Plan (1) Community acquired pneumonia: (2) Anemia: PLAN: Plan 1. Right sided community-acquired pneumonia-patient was changed to Levaquin 750 mg every 48 hours starting tomorrow morning, he will need 2 more doses supplied to him as a prescription on discharge from the hospital. #2 hypoxia secondary #1-pulse ox will be monitored, oxygen will be adjusted as needed #3 anemia-etiology unclear, patient may need workup for anemia, patient and patient's daughter intimated that he would rather undergo an outpatient workup-he goes to the [facility]. #4 elevated creatinine-unfortunately we do not have a baseline creatinine on the patient, monitor labs, I suspect patient has chronic kidney disease Total clinical time spent by myself addressing patient's medical issues, reviewing all of his data, and collaborating with patient's care team: 35 minutes Charges/Coding Visit Charges Inpatient E&M: 60476 Subs Hosp L2
[2024-10-14] MEDS: guaiFENesin Dm 10 ML UDC PO (16:36)
[2024-10-14] MEDS: Atorvastatin Calcium 20 MG Tablet PO (21:00)
[2024-10-14] MEDS: Gabapentin 300 MG Capsule PO (21:00)
[2024-10-15] VITALS (9 sets, daily range): BP systolic 121–129; BP diastolic 50–88; PULSE 60–71; RESP 16–20; TEMP 37–37.1; O2SAT 77–97
[2024-10-15 06:09] LABS: Absolute Lymphocyte Count 0.77 X10^3/uL (0.83-4.51); Basophil# 0.02 X10^3/uL; Basophil% 0.4 % (0-1); Eosinophil# 0.07 X10^3/uL; Eosinophils% 1.5 % (0-5); Hematocrit 27.1 % (40-54); Hemoglobin 8.6 g/dL (13.0-16.5); Lymphocyte # 0.77 X10^3/ul (0.83-4.51); Lymphocyte % 16.1 % (19-41); Mean Corp Hgb Conc 31.7 g/dL (32-36); Mean Corpuscular Hgb 33.5 pg (27.0-32.0); Mean Corpuscular Volume 105.4 fL (80-94); Mean Platelet Vol. 11.3 fl (6.2-12.0); Monocyte# 0.86 X10^3/uL; NRBC Flagged by Analyzer 0 % (0-5); Neutrophil # 3.01 X10^3/uL (2.7-7.7); Neutrophil % 63.2 % (47-70); POSITIVE MORPHOLOGY YES; Platelet Count 155 K/mm3 (150-450); RBC Distribution Width CV 18.5 % (11.6-14.6); RBC Distribution Width SD 72.4 fl (35.1-43.9); Red Blood Count 2.57 M/mm3 (4.6-6.2); White Blood Count 4.8 K/mm3 (4.4-11.0)
[2024-10-15 06:16] LABS: Differential Indicated SCAN CRITERIA MET
[2024-10-15] MEDS: glipiZIDE 5 MG Tablet PO (06:27)
[2024-10-15] MEDS: 0.9% Saline Lock 10 ML Syringe IV (06:27)
[2024-10-15] MEDS: levoFLOXacin 750 MG Tablet PO (06:28)
[2024-10-15 06:46] LABS: Anisocytosis 1+
[2024-10-15] MEDS: Albuterol 2.5 MG/3 ML VIAL.NEB. INHALATION ×2 (07:14→11:54)
[2024-10-15 07:45] LABS: Anion Gap 2 (5-15); BUN 34 mg/dL (7-18); BUN/Creat Ratio 22.5 RATIO (10-20); Calcium,Total 8.7 mg/dL (8.5-10.1); Chloride 103 mmol/L (98-107); Creatinine, Serum 1.51 mg/dL (0.70-1.30); EST Glomerular Filtration Rate 46 mL/min (>60); Est Glom Filt Rate - Afr Amer 56 mL/min (>60); Estimated Creatinine Clearance 34.24 ml/min; Glucose 147 mg/dL (74-106); Potassium 4.9 mmol/L (3.5-5.1); Sodium Level 137 mmol/L (136-145)
--- NOTE | 2024-10-15 07:51 | NURSING ---
Pt was was on 3L of oxygen via NC when this RN entered the room and per report. Knowing there is an oxygen walking trial that is ordered, this RN started to wean pt off the oxygen to see how he does. Sp02 at 3L was 95% but was not in the nares properly. spo2 at 2L was 96%, and spo2 at 1L stayed at 96%, these were all done at rest. Spo2 at rest on RA now is 91%. This rN will walk pt in the reed.
[2024-10-15] MEDS: hydroCHLOROthiazide 25 MG Tablet PO (08:14)
[2024-10-15] MEDS: Atenolol 100 MG Tablet PO (08:15)
[2024-10-15] MEDS: Losartan Potassium 100 MG Tablet PO (08:15)
[2024-10-15] MEDS: amLODIPine 10 MG Tablet PO (08:15)
[2024-10-15] MEDS: Paroxetine 20 MG Tablet PO (08:15)
[2024-10-15] MEDS: Pantoprazole Sodium 40 MG Tablet PO (08:15)
--- NOTE | 2024-10-15 11:45 | NURSING ---
Pt is sitting in chair, has been for the last hour. Pt used I.S at this time, did 10 reps. This RN called Respiratory and they will be up to the floor shortly to give him a breathing tx. This RN will have him use his I.S once more and then do a walking spo2 again. Pt is currently on RA.
--- NOTE | 2024-10-15 14:30 | CASEMGMT ---
Addendum entered by Meenu Multani 10/15/24 15:39: Faxed DC summary to [facility] at [phone]. Original Note: RN CM into pt room, pt lying in bed. Pt still denying need for therapy. Pt did not qualify for home oxygen. Pt dtr will obtain pulse ox. Pt aware [facility] will be out tomorrow. TC to Mary at [facility], she is aware pt will dc today. Pt denies further needs.
--- NOTE | 2024-10-15 15:12 | CASEMGMT ---
Social Work- SW received a call from [facility] requesting collaboration on discharge planing for pt. They are requesting d/c be faxed to: [phone]. RNCM updated. JO-ANN remains available to follow. YASMIN Maciel
--- NOTE | 2024-10-15 15:19 | PCM.DC.SUM ---
Providers Date of Admission: 10/10/24 Date of Discharge: 10/15/24 Primary Care Physician: [facility] Reason For Visit: PNEUMONIA, HYPOXIA Diagnosis Discharge Diagnosis (1) Community acquired pneumonia: Status: Acute Code(s): J18.9 - Pneumonia, unspecified organism (2) Anemia: Status: Acute Code(s): D64.9 - Anemia, unspecified Medications at Discharge Home Medications amlodipine 10 mg tablet 10 mg PO DAILY bp 10/10/24 aspirin 81 mg chewable tablet (Aspirin Childrens) 1 tab PO QHS blood thinner 10/10/24 atenolol 100 mg tablet 100 mg PO DAILY heart 10/10/24 gabapentin 300 mg capsule 300 mg PO QHS pain 10/10/24 glipizide 5 mg tablet 5 mg PO BID diabetes 10/10/24 hydrochlorothiazide 25 mg tablet 25 mg PO DAILY bp 10/10/24 losartan 100 mg tablet (Cozaar) 100 mg PO DAILY bp 10/10/24 lovastatin 40 mg tablet,extended release 24 hr (Altoprev) 40 mg PO QHS see 10/10/24 magnesium 250 mg tablet 500 mg PO QHS supplement 10/10/24 omeprazole 20 mg capsule,delayed release 20 mg PO DAILY gerd 10/10/24 paroxetine HCl 20 mg tablet 20 mg PO QHS mood 10/10/24 pioglitazone 30 mg tablet (Actos) 30 mg PO DAILY see 10/10/24 cyanocobalamin (vitamin B-12) 1,000 mcg capsule 1,000 mcg PO DAILY unknown 10/11/24 guaifenesin 1,200 mg tablet, extended release 12 hr (Mucus Relief ER) 1,200 mg PO BID #10 tabs 10/15/24 levofloxacin 750 mg tablet 750 mg PO Q48@0600 #2 tabs 10/15/24 Hospital Course Operations None Procedures EKG and - (Chest x-ray x 2/CT chest) Summary of Care Provided Minutes Spent on Discharge: 40 Hospital Course: Mr. Mulligan is an 88-year-old white male who presented to the emergency department at [facility] on 10/15/2020 for with a chief complaint of low pulse ox. Patient went to an urgent care on the day of presentation with complaints of productive cough of green sputum over the last several days prior to presentation and he was referred to the emergency department as his pulse ox on room air of the urgent care was noted to be 83%. Vital signs on presentation here showed a temperature of 97.5, heart rate 64, respiratory rate 24, blood pressure 123/49 and pulse ox was 83% on room air and improved to 92% on 2 L nasal cannula. CBC on presentation showed a white count of 7.5 with a left shift having 73.7% neutrophilia. Hemoglobin was 8.1 with no previous for comparison with an MCV of 109. CMP showed a serum creatinine of 2.02 with an unknown baseline however by the time of discharge was down to 1.51. Glucose was 142. CT of the chest was performed and showed a right upper and middle lobe consolidation with a small right pleural effusion and gallstones. Iron studies were pursued given the fact that he had anemia on presentation and his hemoglobin did in fact dropped to 6.8 during his hospital course. He was transfused 1 unit packed red blood cells. Guaiac x 2 was assessed and negative both times. Iron studies were more consistent with anemia of chronic disease not iron deficiency. B12 was obtained given his macrocytosis and was normal at 903. Scope was discussed with family and they deferred to outpatient follow-up with the [facility] and his hemoglobin was stable throughout the entire rest of his hospital course being 8.6 at the time of discharge. He was admitted to the medical floor and placed on antibiotics. Strep pneumo and Legionella antigens were obtained and were unremarkable. COVID/flu/RSV was unremarkable. Sputum culture only showed presumptive Mirian albicans but given his presentation he will be maintained on antibiotics to complete a 7-day course. He has only 2 more days of antibiotics at the time of discharge. This will be completed with Levaquin every 48 hours for 2 more doses. We did assess an ambulatory pulse ox at the time of discharge and he was stable on room air with oxygen saturations in the mid upper 90s and on room air with exertion his oxygen saturation was 91 to 93%. I have advised that he have a follow-up CT in the next 6 to 8 weeks to ensure resolution of the abnormalities noted on his CT at presentation. Given this, he did not require oxygen at the time of discharge. We did discuss with him the importance of ongoing use of incentive spirometry and requested him continue Mucinex for the next 5 days. He can slowly resume his normal activity as his body tolerates and have asked that he follow-up with the [facility] within the next week. Patient was able to be discharged home with home health care in stable condition on 10/15/2024. Discharge diagnoses: Acute hypoxia secondary to community-acquired pneumonia Acute on chronic anemia of chronic disease Leukocytosis-resolved BRIANNA on CKD stage III-resolved DM-2 Diabetic neuropathy Essential hypertension Hyperlipidemia GERD Depression Physical Exam Narrative Patient states he is feeling well anxious to go home. Denies any complaints at this time. Const alert, oriented x3, no limitations and well nourished Constitutional Narrative: Elderly, white male, lying in bed appears comfortable, nontoxic, pleasant, interacts appropriately General Appearance: cooperative, comfortable, well kempt and well developed Orientation / Consciousness: awake, oriented to person, oriented to place and oriented to time Exam Limitations: no limitations Nutritional Appearance: overweight HEENT normocephalic, head/scalp atraumatic and moist oral mucous membranes; Negative for hearing grossly normal bilaterally HEENT Narrative: Marked hearing loss, Mallampati 2, no thrush, dentition is poor Eyes PERRL; Negative for conjunctivae normal Eyes Narrative: Conjunctiva pallor bilaterally, no scleral icterus Neck no lymphadenopathy and supple Neck Narrative: Trachea midline, no thyroid enlargement Resp normal respiratory effort, no retractions, no use of accessory muscles and clear to auscultation bilaterally Resp Narrative: Diminished but clear Auscultation: Negative for crackles, rhonchi or wheezes Cardio regular rate, regular rhythm, S1 normal heart sound, S2 normal heart sound, no murmurs, no rub, no gallops and no clicks GI normal to inspection, nondistended, normoactive bowel sounds, soft to palpation and non-tender Extremity no clubbing, cyanosis or edema Extremity Narrative: Pedal and radial pulses are 2+ Skin skin turgor normal and no jaundice Neuro oriented x3, moves all extremities and no focal motor deficits Neuro Narrative: Independent bed mobility Speech: speech normal Psych affect normal Psych Narrative: Very pleasant, interacts appropriately Weight / BMI Weight Weight: 85.502 kg Body Mass Index (BMI) 27.0 ABG / Lab / Microbiology Data 10/15/24 05:23 10/15/24 06:46 Laboratory: Laboratory Results - last 24 hr 10/15/24 05:23: WBC 4.8, RBC 2.57 L, Hgb 8.6 L, Hct 27.1 L, MCV 105.4 H, MCH 33.5 H, MCHC 31.7 L, RDW Std Deviation 72.4 H, RDW Coeff of Zackery 18.5 H, Plt Count 155, MPV 11.3, Immature Gran % (Auto) 0.800, Neut % (Auto) 63.2, Lymph % (Auto) 16.1 L, [place] % (Auto) 18.0 H, Eos % (Auto) 1.5, Baso % (Auto) 0.4, Absolute Neuts (auto) 3.0, Absolute Lymphs (auto) 0.77 L, Nucleated RBC % 0, Anisocytosis 1+ 10/15/24 06:46: Sodium 137, Potassium 4.9, Chloride 103, Carbon Dioxide 32.0, Anion Gap 2 L, BUN 34 H, Creatinine 1.51 H, Estim Creat Clear Calc 34.24, Est GFR (MDRD) Af Amer 56 L, Est GFR (MDRD) Non-Af 46 L, BUN/Creatinine Ratio 22.5 H, Glucose 147 H, Calcium 8.7 Microbiology: Microbiology 10/11/24 09:00 Sputum, Expectorated/Coughed Gram Stain - Final 10/11/24 09:00 Sputum, Expectorated/Coughed Respiratory Culture - Final Presumptive C albicans 10/10/24 15:00 Stool Stool Occult Blood (DOV) - Final 10/10/24 15:00 Urine, Clean Catch Legionella Antigen - Final 10/10/24 15:00 Urine, Clean Catch Streptococcus pneumoniae Antigen (M - Final 10/10/24 08:05 Mucosa - Nose SARS-CoV-2, Influenza & RSV (PCR) - Final 10/10/24 08:59 Stool Stool Occult Blood (DOV) - Final D/C Instructions Discharge Diet: Low fat / Low cholesterol Discharge Activity: Return to Normal Activity (Slowly return back to your normal activity to allow your body time to heal) DC O2, CPAP, BIPAP Needs RN Home O2 Qualification: Home O2 Qualification: Is the patient on home oxygen No 10/15/24 12:52 Home O2 Qualification: AT REST 1- Pulse Ox at rest 97 10/15/24 12:52 2- Pulse Ox at rest 96 10/15/24 08:05 2- Oxygen Flow Rate at rest 2 10/15/24 08:05 Home O2 Qualification: WITH AMBULATION 1- Pulse Ox with ambulation 92 10/15/24 12:52 1- Oxygen Flow Rate with 0 10/15/24 12:52 ambulation 2- Pulse Ox with ambulation 77 10/15/24 08:05 2- Oxygen Flow Rate with 3 10/15/24 08:05 ambulation 3- Pulse Ox with ambulation 82 10/15/24 08:05 3- Oxygen Flow Rate with 4 10/15/24 08:05 ambulation 4- Pulse Ox with ambulation 88 10/15/24 08:05 4- Oxygen Flow Rate with 6 10/15/24 08:05 ambulation 4- Stopped test - Unable to Yes 10/15/24 08:05 obtain pulse ox >89% w/ max oxyg Additional Home O2 Discharge instructions: No DC home with Oxygen: No Meaningful Use Info Meaningful Use Meaningful Use Diagnoses (Choose all that apply): None applicable Ischemic Stroke Statin Dosing Therapy Reference: STATIN DOSE THERAPY REFERENCE: * Patients > 75 years receive moderate or high dose statin therapy. * Patients 75 years or YOUNGER should receive HIGH intensity statin dose unless contraindicated. You will be required to document reason for non-treatment if statin daily dose does not meet guidelines. HIGH DOSE STATIN THERAPY DAILY Atorvastatin > than or = to 40 mg Rosuvastatin > than or = to 20 mg Amlodipine + Atorvastatin > than or = to 2.5/40 mg Ezetimibe + Simvastatin 10/80 mg Simvastatin 80mg Discharge Plan Admission Admit Date/Time: 10/10/24 09:46 Primary Reason for Your Visit: Low oxygen levels Attending Provider: Mayra Carroll Primary Care Provider: [facility] Consulting Providers: Sesar Pinto Instructions Additional Instructions / Restrictions: 1. Please continue to use your incentive spirometer 10 times every hour while awake slowly 2. Please continue to use Mucinex [id number] 1200 mg twice daily for the next 5 days 3. I would recommend that you obtain an outpatient follow-up chest x-ray versus CAT scan of your chest in about 6 to 8 weeks to ensure resolution of the abnormalities seen on your CAT scan at admission Discharge Orders/Prescriptions Prescriptions: New levofloxacin 750 mg Tablet 750 mg PO Q48@0600 Qty: 2 0RF Rx Instructions: next dose 10/17/24 guaifenesin [Mucus Relief ER] 1,200 mg tablet extended release 12hr 1,200 mg PO BID Qty: 10 0RF Continued atenolol 100 mg tablet 100 mg PO DAILY losartan [Cozaar] 100 mg tablet 100 mg PO DAILY hydrochlorothiazide 25 mg tablet 25 mg PO DAILY omeprazole 20 mg capsule,delayed release(DR/EC) 20 mg PO DAILY pioglitazone [Actos] 30 mg tablet 30 mg PO DAILY glipizide 5 mg tablet 5 mg PO BID amlodipine 10 mg tablet 10 mg PO DAILY magnesium 250 mg tablet 500 mg PO QHS aspirin [Aspirin Childrens] 81 mg tablet,chewable 1 tab PO QHS Altoprev 40 mg tablet extended release 24 hr 40 mg PO QHS paroxetine HCl 20 mg tablet 20 mg PO QHS gabapentin 300 mg capsule 300 mg PO QHS cyanocobalamin (vitamin B-12) 1,000 mcg capsule 1,000 mcg PO DAILY Patient Comments: b12 100mg po qhs Referrals [facility] - Within 1 Week Disposition Disposition (needs filled in before D/C Order can be placed): Home Health Service Charges/Coding Visit Charges Inpatient E&M: 10982 Disch Hosp >30min
--- NOTE | 2024-10-15 16:22 | PHA.DC_ITS ---
Pharmacy [facility] has performed discharge medication reconciliation and counseling for this patient. 1. LEVOFLOXACIN 750MG PO QODAY X 2 DOSES 2. GUAIFENESIN 1200MG PO BID X 5 DAYS The patient's discharge medication list was reviewed for discrepancies and discrepancies were resolved. The patient was counseled on the following discharge medications and changes in medications for homegoing were reviewed. The Reason for Use, instructions for use, and potential side effects were reviewed for all new medications. The patient's questions regarding all of their medications were answered. The patient was able to verbally demonstrate an understanding of their discharge medications. Medications at Discharge Home Medications amlodipine 10 mg tablet 10 mg PO DAILY bp 10/10/24 aspirin 81 mg chewable tablet (Aspirin Childrens) 1 tab PO QHS blood thinner 10/10/24 atenolol 100 mg tablet 100 mg PO DAILY heart 10/10/24 gabapentin 300 mg capsule 300 mg PO QHS pain 10/10/24 glipizide 5 mg tablet 5 mg PO BID diabetes 10/10/24 hydrochlorothiazide 25 mg tablet 25 mg PO DAILY bp 10/10/24 losartan 100 mg tablet (Cozaar) 100 mg PO DAILY bp 10/10/24 lovastatin 40 mg tablet,extended release 24 hr (Altoprev) 40 mg PO QHS see 10/10/24 magnesium 250 mg tablet 500 mg PO QHS supplement 10/10/24 omeprazole 20 mg capsule,delayed release 20 mg PO DAILY gerd 10/10/24 paroxetine HCl 20 mg tablet 20 mg PO QHS mood 10/10/24 pioglitazone 30 mg tablet (Actos) 30 mg PO DAILY see 10/10/24 cyanocobalamin (vitamin B-12) 1,000 mcg capsule 1,000 mcg PO DAILY unknown 10/11/24 guaifenesin 1,200 mg tablet, extended release 12 hr (Mucus Relief ER) 1,200 mg PO BID #10 tabs 10/15/24 levofloxacin 750 mg tablet 750 mg PO Q48@0600 #2 tabs 10/15/24
== END 2024-10-15 17:50 | disposition home health service (06) | DRG 194 ==
LOC: ED 10:00 → MS3 10:04
PROVIDERS: Admitting Provider Internal Medicine; Emergency Provider Emergency Medicine; Visit Provider Internal Medicine
DX: J18.9 Pneumonia, unspecified organism (principal); J90 Pleural effusion, not elsewhere classified; D63.8 Anemia in other chronic diseases classified elsewhere; E11.22 Type 2 diabetes mellitus with diabetic chronic kidney disease; E11.40 Type 2 diabetes mellitus with diabetic neuropathy, unspecified; B37.9 Candidiasis, unspecified; N18.30 Chronic kidney disease, stage 3 unspecified; I12.9 Hypertensive chronic kidney disease with stage 1 through stage 4 chronic kidney disease, or unspecified chronic kidney disease; F32.A Depression, unspecified; F17.220 Nicotine dependence, chewing tobacco, uncomplicated; K21.9 Gastro-esophageal reflux disease without esophagitis; K80.20 Calculus of gallbladder without cholecystitis without obstruction; E78.5 Hyperlipidemia, unspecified; R09.02 Hypoxemia; Z79.84 Long term (current) use of oral hypoglycemic drugs
CPT/HCPCS: 36415; 71046; 71260; 80048; 80053; 82274; 82607; 82728; 82962; 83540; 83550; 83880; 85014; 85018; 85025; 86850; 86900; 86901; 86920; 87070; 87205; 87449; 87631; 93005; 94640; 94668; 94762; 97116; 97162; 97166; 97530; 97535; 99285; 99406; J7040; P9016; Q9967; A4216